=== PATIENT | male | born 2000 | race Caucasian/White ===

== ENCOUNTER 2020-03-24 10:50 | Emergency (ER) | payer BC, SELFPAY ==
[2020-03-24 11:07] VITALS: BP 125/60; PULSE 57; RESP 18; TEMP 36.7; O2SAT 100; BMI 22.4
--- NOTE | 2020-03-24 11:56 | ED.EYEPROB ---
HPI - Eye Problem General Chief complaint: Eye Problems Stated complaint: facial injury Time Seen by Provider: 03/24/20 11:46 Source: patient Mode of arrival: ambulatory Limitations: no limitations History of Present Illness HPI Narrative: 19 healthy male presenting with left eye pain after a plastic vinyl piece of soffit fell and hit him in the eye while he was fixing his mother's kitchen just [employer]. He reports he had immediate pain and some bleeding from a small laceration on the inside of his eye. He had burning when he tried to open his eye until the bleeding was controlled. He denies vision changes, headache, nausea, vomiting. No other injuries. chief complaint: eye injury Onset (ago): hour(s) (1) Onset description: sudden Duration: constant and improved Location: left eye Eye Symptoms: pain Place: home Mechanism: direct trauma Severity: mild If Pain, Quality: sharp Associated symptoms: none Treatments Prior to Arrival: irrigated eye Related Data Patient tetanus UTD: No Allergies Allergy/AdvReac Type Severity Reaction Status Date / Time No Known Allergies Allergy Verified 03/24/20 11:54 Review of Systems Review of Systems: Constitutional: No Fever, No Chills ENT/Mouth: No sore throat, No Rhinorrhea, No Swallowing Difficulty Eyes: + Eye Pain, + Swelling, No Redness Gastrointestinal: No Nausea, No Vomiting Skin: + Skin Lesions, No rash Neuro: No Dizziness, No Headache Psych: No Anxiety/Panic, No Depression Heme/Lymph: + Bruising PMFSH Past Medical History Attestation statement: The following information was validated with the patient. Physical Exam Vital Signs: Vital Signs: Last Vital Signs Temp 98.1 F 03/24/20 11:07 Pulse 57 03/24/20 11:07 Resp 18 03/24/20 11:07 BP 125/60 03/24/20 11:07 Pulse Ox 100 03/24/20 11:07 Body Mass Index 22.4 Appearance: Alert. Oriented X3. No acute distress. HEENT: normal apperance of nose. normal right eye. left eye with upper lid swelling, ecchymosis below left eye, upper nasal bridge near inner eye with <1cm laceration, superficial with no active bleeding, does not involve lacrimal duct or medial canthus. no conjuctival injection. PERRLA, EOMI. Respiratory: No respiratory distress. Skin: Skin warm and dry. Normal skin color. Normal skin turgor. No rashes. Extremities: atraumatic. no edema. Neuro: Oriented X 3. No motor deficit. No sensory deficit. Course Course Course Narrative: 19 y/o presenting with small laceration to inner left eye - does not involve structures of he eye. VA noted. It is very small and within natural skin fold. Discussed option of possible suture repair however given size and proximity to eye it was decided to allow natural healing and avoid wound closure. Scarring will be minimal due to location and skin fold. Will give Tdap. Will apply bacitracin to area. Stable for d/c. Critical Care Time Critical Care Time Critical Care Time: No Discharge Plan Discharge Clinical Impression: Laceration Black eye of left side Qualifiers: Encounter type: initial encounter Qualified Code(s): S00.12XA - Contusion of left eyelid and periocular area, initial encounter Patient Disposition: Home, Self-Care Instructions: Black Eye (ED), Laceration Without Closure (ED) Additional Instructions: Your eye laceration will close and heal naturally without repair. You were given your Tetanus shot today while in the ER Keep area clean and dry. Do not get wet for 24 hours. After that you can gently get wet and pat dry. Apply bacitracin or Neosporin to the area 2x per day. Follow up with your doctor as needed. If you develop vision changes, worsening swelling or pain come back to the ER for further evaluation.
== END 2020-03-24 12:52 | disposition home or self-care (01) ==
LOC: HO.ED 12:11
PROVIDERS: Emergency Provider Emergency Medicine; PCP Pediatrics
DX: S01.112A Laceration without foreign body of left eyelid and periocular area, initial encounter (principal); S00.12XA Contusion of left eyelid and periocular area, initial encounter; W22.8XXA Striking against or struck by other objects, initial encounter; Y93.89 Activity, other specified; Y92.010 Kitchen of single-family (private) house as the place of occurrence of the external cause; Y99.9 Unspecified external cause status
CPT/HCPCS: 90715; 99283

== ENCOUNTER 2022-01-10 17:57 | Emergency (ER) | payer BC, SELFPAY ==
[2022-01-10 18:05] VITALS: BP 148/84; PULSE 136
--- NOTE | 2022-01-10 18:13 | ED.OVERDOSE ---
HPI - Overdose General Chief Complaint: Overdose Stated Complaint: HEROIN OD,UNRESP,GIVEN NARCAN W/GOOD RESULT Source: patient and EMS Mode of arrival: EMS Limitations: no limitations History of Present Illness HPI Narrative: 21-year-old male presents via EMS for heroin overdose. Patient was found unconscious in his room, was given 12 mg of Narcan and bagged for approximately 5 minutes before he became responsive. He has a known cocaine problem, but family believes heroin use is new. Patient is alert and oriented at this time, and moving extremities spontaneously. O2 sats remain above 98% on room air. complaint: accidental overdose Onset (ago): hour(s) (Within the hour of arrival) Timing confirmed by: family member How Overdose Was Discovered: family/friend present at time and called 911 Context: Intentional Overdose: drug/ETOH problems Context: Accidental Overdose: wanted to get high Treatments Prior to Arrival: narcan Related Data Allergies Allergy/AdvReac Type Severity Reaction Status Date / Time No Known Allergies Allergy Verified 03/24/20 11:54 Review of Systems Review of Systems: Constitutional: No Fever, No Chills ENT/Mouth: No Ear Pain, No Hoarseness, No sore throat Eyes: No Eye Pain, No Swelling, No Redness, No Foreign Body Cardiovascular: No Chest Pain, No SOB Respiratory: No Cough, No Dyspnea Gastrointestinal: No Nausea, No Vomiting, No Diarrhea, No abdominal Pain Genitourinary: No Dysuria, No Hematuria Musculoskeletal: No joint pain, No Myalgias, No Joint Swelling Skin: No Skin lacerations, No rash Neuro: No Weakness, No Numbness, No Paresthesias, No Loss of Consciousness, No Dizziness, No Headache Psych: Positive heroin overdose, No Anxiety/Panic, No Depression Heme/Lymph: no easy bruising, no Lymphadenopathy Endocrine: No Polyuria, No Polydipsia Yes all other systems are reviewed and are negative [facility] Past Medical History Attestation statement: The following information was validated with the patient. Source: old records reviewed Social History Social History Advance Directives: No Advance Directives Information Provided: No Physical Exam Vital Signs: Vital Signs: Last Vital Signs Pulse 116 H 01/10/22 18:32 Resp 16 01/10/22 18:32 BP 111/53 L 01/10/22 18:32 Pulse Ox 99 01/10/22 18:32 O2 Del Method 01/10/22 18:32 BMI result Body Mass Index 27.8 Appearance: Alert. Oriented X3. No acute distress. Remorseful. Eyes: Pupils equal, round and reactive to light. No nystagmus. ENT: Pharynx normal. Neck: Normal inspection. Neck supple. CVS: Normal heart rate and rhythm. Pulses normal. Respiratory: No respiratory distress. Breath sounds normal. No tracheal stridor. Abdomen: Soft and nontender. Skin: Skin warm and dry. Normal skin color. Normal skin turgor. Extremities: No lower extremity edema. Moves all extremities against resistance. Neuro: No motor deficit. No sensory deficit. Cranial nerves 2-12 intact. Course Course Course Narrative: 21-year-old male presents via EMS for heroin overdose, was given 12 mg of Narcan by PD, and then required bag-mask ventilation for approximately 5 minutes after Narcan administration. Patient reports that he snorted heroin, normally uses cocaine, and denies suicidal and homicidal ideation. He states that heroin use is new for him. Does not report any chest pain or pressure, palpitations, shortness of breath, able to maintain his secretions, O2 sat 98% on room air, and able to follow directions. He is interested in detox at this time. I did inform the patient that we would be monitoring him for a few hours prior to his discharge because of the amount of Narcan that was given to him. His mother is at bedside. strength and conditioning coach and discuss plan for detox, family is calling [facility] [place] per patient's request. Patient continues with even unlabored respirations, is answering all questions appropriately and politely, appears remorseful, maintaining secretions with stable vital signs. 19:30 patient continues with even unlabored respirations, O2 sat 99% on room air. Will present to detox with family. Patient verbalized understanding of and agrees to plan of care discharge home. Verbalized understanding of indicating need for emergent intervention. MDM - Overdose Differential Diagnosis Differential diagnosis: Likely cocaine intoxication and drug overdose Medical Records Attestation: I reviewed the patient's medical records. Discharge Plan Discharge Clinical Impression: Drug overdose Patient Disposition: Home, Self-Care Instructions: Adult Overdose (ED) Additional Instructions: Thank you for choosing detox. Please Follow-up with detox facility of your choosing. Thank you for choosing this emergency department for evaluation. Please follow-up with primary care physician as needed. Return to the emergency department for any new, concerning, or worsening symptoms. Interventions: ED Discharge Assessment Last Done: 01/10/22 20:18 Discharge Date/Time: 01/10/22 20:20
[2022-01-10 18:32] VITALS: BP 111/53; PULSE 116; RESP 16; O2SAT 99; BMI 27.8
--- NOTE | 2022-01-10 19:54 | MHC.RECOVSUP ---
? Reason for consult:OPI o Current location:ED12 o Identified substance use concern: - Overdose - Seeking ATS (detox) - Support ? Intervention: o ATS bed search started/completed/in process o Community resources provided o Harm reduction discussion ? Plan:pt got a bed at [facility] ? Additional information:PT was discharged [facility] got pt into [facility].
[2022-01-10] MEDS: Naloxone HCl Nasal TAKE HOME 4 MG SPRAY NOSTRILALT (20:09)
== END 2022-01-10 20:20 | disposition home or self-care (01) ==
PROVIDERS: Emergency Provider Internal Medicine
DX: T40.1X1A Poisoning by heroin, accidental (unintentional), initial encounter (principal); R40.4 Transient alteration of awareness; Y92.013 Bedroom of single-family (private) house as the place of occurrence of the external cause
CPT/HCPCS: 99282; 99283